=== PATIENT | female | born 1945 | race Hispanic/Latino ===

== ENCOUNTER 2022-07-27 05:30 | Observation (INO) | payer OTHER ==
[2022-07-21 11:43] LABS: BASOPHILS % (AUTO) 0.8 % (0.0-5.0); EOSINOPHILS % (AUTO) 1.6 % (0.0-8.0); MEAN CORPUSCULAR HGB CONC 33.8 g/dL (32.0-36.0); MEAN CORPUSCULAR VOLUME 91.5 fL (79-99); MONOCYTES % (AUTO) 8.9 % (3.0-13.0); NEUTROPHILS % (AUTO) 47.5 % (40.0-77.0); PLATELET COUNT (AUTO) 192 K/uL (130-400); RED BLOOD CELL COUNT(AUTO) 4.26 MIL/uL (4.00-5.50); RED CELL DISTRIBUTION WIDTH 12.9 % (11.0-15.5); WHITE BLOOD COUNT (AUTO) 5.1 K/uL (4.8-10.8)
[2022-07-21 11:58] LABS: CREATININE 0.7 mg/dL (0.5-1.5); INR 1.04 (0.85-1.15); POTASSIUM 3.9 mmol/L (3.5-5.1); PROTHROMBIN TIME 11.3 SEC (9.6-11.6)
[2022-07-21 11:59] LABS: PARTIAL THROMBOPLASTIN TIME 27.9 SEC (26.3-35.5)
[2022-07-21 15:29] VITALS: BP 140/67
[2022-07-27] VITALS (25 sets, daily range): BP systolic 128–193; BP diastolic 54–96
[~2022-07-27] VITALS: Ht 154.9 cm; Wt 62.3 kg
[~2022-07-27 05:30] MED LIST: GEMF600T89 PO; OMEP40CA21 PO; TRANEXAMIC ACID 1000MG/10ML ONE
[2022-07-27] MEDS ORDERED: BUPIVACAINE/PF 0.25% 10ML VIAL IJ ONE (06:05)
[2022-07-27] MEDS ORDERED: HYDRALAZINE 20MG/ML VIAL ONE (06:12)
[2022-07-27] MEDS ORDERED: TRANEXAMIC ACID 1000MG/10ML ONE ×4 (06:12→06:48)
[2022-07-27] MEDS ORDERED: LACTATED RINGERS 1000ML 1,000 ML IV ONE (06:24)
[2022-07-27] MEDS ORDERED: CEFAZOLIN SODIUM 2 GM VIAL ONE (06:24)
[2022-07-27] MEDS ORDERED: FAMOTIDINE 20MG VIAL IV ONE (06:36)
[2022-07-27] MEDS ORDERED: HYDROMORPHONE 1 MG INJ ONE (06:36)
[2022-07-27] MEDS ORDERED: ROCURONIUM 10MG/1ML SYR 10 MG/ML ML ONE (06:46)
[2022-07-27] MEDS ORDERED: LIDOCAINE PF 100MG/5ML (2%) SYRINGE 5ML ONE (06:46)
[2022-07-27] MEDS ORDERED: SUCCINYLCHOLINE 200MG/10ML SYR ONE (06:46)
[2022-07-27] MEDS ORDERED: PROPOFOL 10 MG/ML 20ML VIAL IV ONE (06:46)
[2022-07-27] MEDS ORDERED: GLYCOPYRROLATE 1 MG/5 ML SYRINGE ONE (06:46)
[2022-07-27] MEDS ORDERED: FENTANYL CITRATE PF 50 MCG/1 ML 2ML VIAL ONE ×2 (06:48→08:28)
[2022-07-27] MEDS ORDERED: PHENYLEPHRINE HCL 10 MG/ML 1ML VIAL IV ONE (06:55)
[2022-07-27] MEDS ORDERED: ONDANSETRON 4MG INJ ONE (07:48)
[2022-07-27] MEDS ORDERED: NEOSTIGMINE 5MG/5ML SYR IV ONE (07:53)
[2022-07-27] MEDS ORDERED: LACTATED RINGERS 1000ML 1,000 ML IV SCH (08:00)
[2022-07-27] MEDS ORDERED: CEFAZOLIN SODIUM 2 GM VIAL IVPB PRN (08:00)
[2022-07-27] MEDS ORDERED: POTASSIUM CHLORIDE 20MEQ/100ML 100 ML IV PRN (09:30)
[2022-07-27] MEDS ORDERED: LIDOCAINE HCL-MPF 1% 2ML VIAL IV PRN (09:30)
[2022-07-27] MEDS ORDERED: HYDROCODONE/ACETAMINOPHEN 5/325 MG TAB PO PRN (09:30)
[2022-07-27] MEDS ORDERED: MORPHINE 4 MG SYG IVP PRN (09:30)
[2022-07-27] MEDS ORDERED: HYDROCODONE/ACETAMINOPHEN 10/325 MG TAB PO PRN (09:30)
[2022-07-27] MEDS: 0.9%NACL 1000ML 1,000 ML IV SCH ×2 (09:30→20:50)
[2022-07-27] MEDS ORDERED: ONDANSETRON 4MG INJ IVP PRN (09:30)
[2022-07-27] MEDS ORDERED: POTASSIUM CHLORIDE 10% ELIXIR 20 MEQ/15 ML UDCUP PO PRN (09:30)
[2022-07-27] MEDS ORDERED: FERROUS FUMARATE 324 MG TABLET PO PRN (09:30)
[2022-07-27] MEDS: ACETAMINOPHEN 1,000 MG/100 ML VIAL IV SCH ×3 (09:30→17:38)
[2022-07-27] MEDS ORDERED: ACETAMINOPHEN 1,000 MG/100 ML VIAL IV ONE (09:52)
[2022-07-27] MEDS: PANTOPRAZOLE 40 MG TAB DR PO SCH (09:57)
[2022-07-27] MEDS ORDERED: IBUPROFEN 800MG + NS 250ML IV SCH (12:30)
[2022-07-27] MEDS: TRAMADOL HCL 50 MG TABLET PO SCH ×2 (13:32→20:58)
[2022-07-27] MEDS: CALDOLOR 800MG+NS 250ML 250 ML IV SCH ×2 (14:11→21:01)
[2022-07-27] MEDS ORDERED: HYDRALAZINE 25MG TABLET PO PRN (14:30)
[2022-07-27] MEDS: CEFAZOLIN SODIUM 1 GM VIAL IVP SCH ×2 (15:46→23:30)
[2022-07-27] MEDS: FAMOTIDINE 20MG TAB PO SCH (20:51)
[2022-07-27] MEDS: GEMFIBROZIL 600 MG TABLET PO SCH (21:00)
[2022-07-27] MEDS: ASPIRIN 81 MG EC TAB PO SCH (21:01)
[2022-07-28 04:01] VITALS: BP 127/66
[2022-07-28 04:37] LABS: BASOPHILS % (AUTO) 0.2 % (0.0-5.0); HEMATOCRIT 34.1 % (36-48); LYMPHOCYTES % (AUTO) 16.8 % (21.0-51.0); MEAN CORPUSCULAR HEMOGLOBIN 31.1 pg (27.0-33.0); MEAN CORPUSCULAR VOLUME 91.4 fL (79-99); MONOCYTES % (AUTO) 11.7 % (3.0-13.0); NEUTROPHILS % (AUTO) 70.9 % (40.0-77.0); PLATELET COUNT (AUTO) 150 K/uL (130-400); RED BLOOD CELL COUNT(AUTO) 3.73 MIL/uL (4.00-5.50); RED CELL DISTRIBUTION WIDTH 12.8 % (11.0-15.5); WHITE BLOOD COUNT (AUTO) 9.8 K/uL (4.8-10.8)
[2022-07-28 04:51] LABS: ALBUMIN 3.5 g/dL (3.5-5.0); CREATININE 0.7 mg/dL (0.5-1.5); MAGNESIUM 1.6 mg/dL (1.80-2.40); POTASSIUM 3.1 mmol/L (3.5-5.1); TOTAL PROTEIN, SERUM 6.6 g/dL (6.0-8.3)
[2022-07-28] MEDS: 0.9%NACL 1000ML 1,000 ML IV SCH (05:30)
[2022-07-28] MEDS: PANTOPRAZOLE 40 MG TAB DR PO SCH (06:17)
[2022-07-28] MEDS: KCL 20 MEQ ERTAB PO PRN ×2 (06:17→13:24)
[2022-07-28 08:00] VITALS: BP 114/53
[2022-07-28] MEDS ORDERED: MAGNESIUM 2GM PREMIX 50ML 50 ML IV PRN (08:00)
[2022-07-28] MEDS ORDERED: POTASSIUM CHLORIDE 20MEQ/100ML 100 ML IV PRN (08:00)
[2022-07-28] MEDS ORDERED: LIDOCAINE HCL-MPF 1% 2ML VIAL IV PRN (08:00)
[2022-07-28] MEDS ORDERED: POTASSIUM CHLORIDE 10% ELIXIR 20 MEQ/15 ML UDCUP PO PRN (08:00)
[2022-07-28] MEDS ORDERED: KCL 20 MEQ ERTAB PO PRN (08:00)
[2022-07-28] MEDS: TRAMADOL HCL 50 MG TABLET PO SCH ×2 (08:49→13:24)
[2022-07-28] MEDS: FAMOTIDINE 20MG TAB PO SCH (08:50)
[2022-07-28] MEDS: ASPIRIN 81 MG EC TAB PO SCH (08:50)
[2022-07-28] MEDS: GEMFIBROZIL 600 MG TABLET PO SCH ×2 (09:00→10:06)
[2022-07-28] MEDS ORDERED: POLYETHYLENE GLYCOL 3350 17 GM POWD.PACK PO SCH (09:00)
[2022-07-28 11:52] VITALS: BP 129/56
[2022-07-28 12:47] LABS: MAGNESIUM 2.5 mg/dL (1.80-2.40); POTASSIUM 3.7 mmol/L (3.5-5.1)
[2022-07-30] MEDS ORDERED: BISACODYL 10 MG SUPP.RECT RC PRN (09:30)
== END 2022-07-28 15:20 | disposition home or self-care (01) ==
LOC: DAH 05:30 → DAHIP 05:31 → 4AH 10:30
PROVIDERS: ADMIT Orthopaedic Surgery; ATTEND Orthopaedic Surgery
DX: M17.12 Unilateral primary osteoarthritis, left knee (principal); Z20.822 Contact with and (suspected) exposure to COVID-19; I10 Essential (primary) hypertension; R53.81 Other malaise; E87.6 Hypokalemia; E78.5 Hyperlipidemia, unspecified; K21.9 Gastro-esophageal reflux disease without esophagitis; M81.0 Age-related osteoporosis without current pathological fracture; E83.42 Hypomagnesemia; Z90.710 Acquired absence of both cervix and uterus; Z79.899 Other long term (current) drug therapy
CPT/HCPCS: 80048; 85025 ×2; 85610; 85730; 87426; 36415 ×2; 27447; 0055T; 96376; 96365; 96366 ×2; 96375 ×2; 96368; 97161; 97039 ×4; 97530 ×3; 83735 ×2; 84132; 80053; 97116 ×2; A6260; G0378 ×28; J7030; J7120 ×3; A4649 ×4; J3490 ×8; J3010 ×2; J0690 ×3; J1170; J0330; J2710; J2001; J0360; J2704; J2405 ×2; J2370; J1741; G0168; C1776 ×4; A6255; A6254; A5120; A4215; A4223; A4222; A4221; A4663; J3475; J2270